=== PATIENT | male | born 1970 | race Caucasian/White ===

== ENCOUNTER 2019-06-06 07:29 | Emergency (ER) | payer OTHER, SELFPAY ==
[2019-06-06 07:36] VITALS: BP 181/96; PULSE 101; RESP 22; TEMP 36.9; O2SAT 99; BMI 27.1
--- NOTE | 2019-06-06 07:47 | ED_ITS ---
HPI - Abdominal Pain General Chief Complaint: Abdominal Pain Stated Complaint: ABDOMINAL PAIN Time Seen by Provider: 06/06/19 07:36 Source: patient Mode of arrival: Ambulatory Limitations: no limitations History of Present Illness HPI narrative: 49-year-old male here for evaluation of left sided abdominal pain. Patient states that the symptoms started last evening at approximately 1000 hours. Has had some nausea and vomiting which did not changes abdominal pain. He did think that he was constipated so he took a stool softener but has not had a bowel movement. Has been urinating with this does not seem to change his pain as well. No fevers. He did notice that heating pad and sitting in a warm bath helped his symptoms somewhat. No prior abdominal surgeries. Never had a kidney stone before. States that the pain did start in his left back and is now in his left abdomen. No fevers. Related Data Previous Rx's Medication Instructions Recorded hydrocodone-acetaminophen [[place]] 1 tab PO Q4H PRN #14 tab 06/06/19 ondansetron 4 mg PO Q6H PRN #14 tab 06/06/19 Allergies Allergy/AdvReac Type Severity Reaction Status Date / Time No Known Drug Allergies Allergy Verified 06/06/19 07:36 Review of Systems Constitutional Constitutional: Denies fever(s) Cardiovascular Cardiovascular: Denies chest pain and Denies dyspnea Respiratory Respiratory: Denies dyspnea Gastrointestinal Gastrointestinal: Reports abdominal pain, Reports constipation, Reports nausea and Reports vomiting Genitourinary Genitourinary: Denies dysuria Musculoskeletal Musculoskeletal: Denies abnormal gait, Denies myalgias and Denies arthralgias Integumentary/Breasts Skin/Breast: Denies lesions and Denies rash Neurologic Neurologic: Denies abnormal gait and Denies behavioral changes Psychiatric Psychiatric: Denies behavioral changes Hematologic/Lymphatic Hematologic/Lymphatic: Denies easy bleeding and Denies easy bruising Patient History Medical History Lower back pain (Acute) Social History Smoking Status: Never smoker alcohol intake frequency: 0-2 drinks per day Substance Use Type: does not use Exam Initial Vital Signs Initial Vital Signs: Vital Signs Temperature 98.4 F 06/06/19 07:36 Pulse Rate 101 H 06/06/19 07:36 Respiratory Rate 22 06/06/19 07:36 Blood Pressure 181/96 H 06/06/19 07:36 Pulse Oximetry 99 06/06/19 07:36 Const General: cooperative, No comfortable (On comfortable), well developed and well groomed Orientation: alert and awake HENMN Head: normal to inspection and normocephalic Resp Effort & Inspection: normal respiratory effort Auscultation: clear to auscultation bilaterally Cardio Rate: regular rate Rhythm: regular rhythm GI Inspection: non-distended Palpation: soft, No firm and No tender (No tenderness with palpation) Back/Spine/Pelvis Back: No CVA tenderness Skin Lesions: no lesions Rashes: no rashes Neuro General: alert and awake Cognition: normal cognition Speech: speech normal Extrem General: normal to inspection and capillary refill normal Psych Appearance: grossly normal and well kempt Course Orders Ordered: ED Orders 06/06/19 07:45 CT kidney ureter bladder (KUB) Stat Complete Blood Count AUTO DIFF Stat 06/06/19 08:20 Comprehensive Metabolic Panel Stat Lipase Stat 06/06/19 08:36 Urine Microscopic Stat 06/06/19 08:46 Urine Culture Stat Discontinued Medications Hydromorphone HCl (Dilaudid) 1 mg IV NOW ONE Stop: 06/06/19 07:42 Last Admin: 06/06/19 07:55 Dose: 1 mg Documented by: AMELIA Ketorolac Tromethamine (Toradol) 30 mg IV NOW ONE Stop: 06/06/19 07:42 Last Admin: 06/06/19 07:55 Dose: 30 mg Documented by: AMELIA Ondansetron HCl (Zofran) 4 mg IV NOW ONE Stop: 06/06/19 07:42 Last Admin: 06/06/19 07:55 Dose: 4 mg Documented by: AMELIA Vital Signs Vital signs: Vital Signs - 8 hr 06/06/19 07:36 Temperature 98.4 F Pulse Rate 101 H Respiratory Rate 22 Blood Pressure 181/96 H Pulse Oximetry 99 MDM - Abdominal Pain Lab Data Attestation: I reviewed the patient's lab results. Result diagrams: 06/06/19 07:45 06/06/19 08:20 Labs: Lab Results 06/06/19 06/06/19 06/06/19 Range/Units 07:45 08:20 08:36 WBC 11.9 H (4.5-11.0) X10^3/uL RBC 5.06 (4.5-5.9) X10^6/uL Hgb 16.0 (13.5-17.5) g/dL Hct 45.8 (41-53) % MCV 90.5 (80-100) fL MCH 31.5 (26-34) PG MCHC 34.9 (30-36) % RDW 13.6 (11.6-14.8) % Plt Count 306 (150-400) X10^3/uL Neut % (Auto) 80.3 H (50-75) % Lymph % (Auto) 10.0 L (25-40) % [place] % (Auto) 8.8 (3-14) % Eos % (Auto) 0.4 L (2-4) % Baso % (Auto) 0.5 (0-2) % Neut # (Auto) 9500 H (9111-2032) /uL Lymph # (Auto) 1200 (0924-9348) /uL [place] # (Auto) 1000 H (0-900) /uL Eos # (Auto) 0 (0-450) /uL Baso # (Auto) 100 (0-100) /uL Sodium 139 (137-145) mmol/L Potassium 5.0 (3.4-5.1) mmol/L Chloride 103 (98-107) mmol/L Carbon Dioxide 24 (22-32) mmol/L BUN 17 (9-20) mg/dL Creatinine 1.50 H (0.66-1.25) mg/dL Estimated GFR 49.3 L (>60) mL/min BUN/Creatinine Ratio 11.3 (6-22) Glucose 122 H (70-100) mg/dL Calcium 9.9 (8.4-10.2) mg/dL Total Bilirubin 1.1 (0.2-1.3) mg/dL AST 50 (17-59) IU/L ALT 79 H (21-72) IU/L Alkaline Phosphatase 55 (38-126) U/L Total Protein 8.7 H (6.3-8.2) g/dL Albumin 4.9 (3.5-5.0) g/dL Globulin 3.8 (1.7-4.1) g/dL Albumin/Globulin Ratio 1.3 (1.0-2.8) Lipase 110 (23-300) U/L Urine RBC None seen (0-5/HPF) Urine WBC None seen (0-5/HPF) Ur Squamous Epith Cells 0-1 /hpf (0-5/HPF) Amorphous Sediment 1+ Urine Bacteria None seen (None) Ur Culture Indicated? Cult not indicated Point of care testing: Urine Dip Bedside Urine Glucose Negative Bedside Urine Bilirubin - Negative Bedside Urine Ketone - Negative Urine Specific [place] 1.020 Bedside Urine Occult Blood +/- Bedside Urine pH 6.0 Bedside Urine Protein + 30 Bedside Urine Urobilinogen 1+ 2mg Bedside Urine Nitrite - Negative Bedside Urine Leukocytes - Negative Esterase Imaging Data CT scan - abdomen: Radiologist's impression: [address] [address] [address] Scan Report Signed Patient: Shikha Siu [facility]#: [id number] : 1970Acct:[id number] Age/Sex: 49 / MDate of Service: 06/06/19 Loc: ED Accession Number: [id number] Procedure: CT kidney ureter bladder (KUB) Ordering Provider: Nahun Sheriff D.O. PROCEDURE: CT KIDNEY URETER BLADDER (KUB) INDICATIONS: left-sided abdominal pain TECHNIQUE: Noncontrast 5 mm thick sections acquired from the diaphragms to the symphysis. 5 mm thick coronal and sagittal reformats were then performed. For radiation dose reduction, the following was used: automated exposure control, adjustment of mA and/or kV according to patient size. COMPARISON: None. FINDINGS: Image quality: Excellent. Lung bases: Lung bases are clear. Heart size is normal. Urinary system: Both kidneys are normal in size. There is moderate left-sided hydronephrosis and hydroureter with mild to moderate left perinephric and periureteral stranding. 2 mm calcification is seen in the region of left UVJ consistent with a left UVJ stone. 3 mm nonobstructing stone is seen in the pole of right kidney. No hydronephrosis. Right ureter is within normal limits. Bladder wall thickness is normal; no calcified bladder stones. Other solid organs: Liver is normal in size. Hepatic steatosis is seen. Gallbl adder is unremarkable. Pancreas is normal in contours. Spleen is normal in size. No adrenal nodules. Peritoneum and bowel: Unenhanced bowel loops demonstrate normal wall thickness and caliber. No free fluid or air. Nodes and vessels: No retroperitoneal or mesenteric adenopathy by size criteria. Aorta and inferior vena cava are normal in caliber. Abdominal wall: No ventral hernias. Pelvis: No free pelvic fluid. No inguinal hernias or adenopathy. Bones: No suspicious bony lesions. No vertebral body compression fractures. IMPRESSION: 1. 2 mm left UVJ stone with mild to moderate left-sided hydronephrosis and hydroureter as well as left perinephric/periureteral fat stranding. 2. Nonobstructing stone in the right kidney. No right-sided hydronephrosis. Nor mal appearing right ureter. Normal-appearing urinary bladder. 3. Hepatic steatosis. No bowel obstruction. Normal appendix. No free fluid or free air. Dictated by: Seng Rossi M.D. on 06/06/2019 at 8:36 Approved by: Seng Rossi M.D. on 06/06/2019 at 8:41 MDM Narrative Medical decision making narrative: Urinalysis no signs of infection. Patient's creatinine is slightly elevated today with a decreased GFR. I do suspect this is secondary to the stone however I do not have a baseline to compare this to. Patient is nontoxic. Has no other findings on the CT scan. I do suspect that his symptoms related to the stone. Will send home with symptom control. He was given return precautions and follow-up instructions. He expressed understanding and agreement with plan. Discharge Plan Departure Patient Disposition: Home Clinical Impression: Renal colic on left side Instructions: DI for Kidney Stones Activity Restrictions/Additional Instructions: I do recommend that you contact your primary provider for a follow-up. I do recommend that you have a follow-up lab studies to make sure that your kidney function returns to normal after you passed the stone. Take the medications as directed. Return to the emergency department for any fevers, pain that is not controlled with the medicines, or inability to urinate. Prescriptions: New ondansetron 4 mg tablet,disintegrating 4 mg PO Q6H PRN (Reason: nausea and vomiting) Qty: 14 RF: 0 hydrocodone-acetaminophen [[place]] 5-325 mg tablet 1 tab PO Q4H PRN (Reason: pain) Qty: 14 RF: 0
[2019-06-06] MEDS: HYDROMORPHONE 1 MG INJ IV (07:55)
[2019-06-06] MEDS: ONDANSETRON 4 MG/2 ML INJ IV (07:55)
[2019-06-06] MEDS: KETOROLAC 60 MG/2 ML VIAL 30 MG IV (07:55)
[2019-06-06 07:56] LABS: Add Manual Diff / Slide Review NO; Basophils Absolute Auto 100 /uL (0-100); Basophils Percent Auto 0.5 % (0-2); Eosinophils Absolute Auto 0 /uL (0-450); Eosinophils Percent Auto 0.4 % (2-4); Hematocrit 45.8 % (41-53); Lymphocytes Absolute Auto 1200 /uL (1100-4500); Mean Corpuscular HGB Conc 34.9 % (30-36); Mean Corpuscular Hemoglobin 31.5 PG (26-34); Mean Corpuscular Volume 90.5 fL (80-100); Monocytes Absolute Auto 1000 /uL (0-900); Monocytes Percent Auto 8.8 % (3-14); Neutrophils Absolute Auto 9500 /uL (1500-7000); Neutrophils Percent Auto 80.3 % (50-75); Platelet Count 306 X10^3/uL (150-400); Red Blood Cell Count 5.06 X10^6/uL (4.5-5.9); Red Cell Distribution Width 13.6 % (11.6-14.8); White Blood Cell Count 11.9 X10^3/uL (4.5-11.0)
[2019-06-06 08:47] LABS: Bacteria Urine None Seen; RBC Urine None Seen (0-5/HPF); WBC Urine None Seen (0-5/HPF)
[2019-06-06 08:51] LABS: Alanine Aminotransferase 79 IU/L (21-72); Albumin 4.9 g/dL (3.5-5.0); Albumin Globulin Ratio 1.3 (1.0-2.8); Alkaline Phosphatase 55 U/L (38-126); Aspartate Aminotransferase 50 IU/L (17-59); BUN Creatinine Ratio 11.3 (6-22); Bilirubin Total 1.1 mg/dL (0.2-1.3); Blood Urea Nitrogen 17 mg/dL (9-20); Calcium 9.9 mg/dL (8.4-10.2); Carbon Dioxide 24 mmol/L (22-32); Chloride 103 mmol/L (98-107); Estimated Glomerular Filt Rate 49.3 mL/min (>60); Globulin 3.8 g/dL (1.7-4.1); Glucose 122 mg/dL (70-100); Lipase 110 U/L (23-300); Sodium 139 mmol/L (137-145); Total Protein 8.7 g/dL (6.3-8.2)
[2019-06-06 08:52] LABS: HEMOLYSIS 75 (0-50)
[2019-06-06 08:57] LABS: Amorphous Sediment Urine 1+; Culture Indicated Urine Cult Not Indicated; Squamous Epithelial Cell Urine 0-1 /HPF (0-5/HPF)
[2019-06-06 09:20] VITALS: BP 136/85; PULSE 71; RESP 14; O2SAT 96
== END 2019-06-06 09:25 | disposition home or self-care (01) ==
PROVIDERS: Emergency Provider Emergency Medicine; Family Provider Physician Assistant
DX: N23 Unspecified renal colic (principal); R79.89 Other specified abnormal findings of blood chemistry; R11.2 Nausea with vomiting, unspecified; K59.00 Constipation, unspecified
CPT/HCPCS: 36415; 74176; 80053; 81003; 81015; 83690; 85025; 87086; 96374; 96375; 99283; 99284; J1170; J1885; J2405

== ENCOUNTER 2023-11-29 12:57 | Observation (INO) | payer OTHER, SELFPAY ==
[2023-11-29] VITALS (77 sets, daily range): BP systolic 127–228; BP diastolic 71–129; PULSE 69–136; RESP 16–38; TEMP 36.9–37.6; O2SAT 92–98; BMI 27.7
--- NOTE | 2023-11-29 13:14 | DI.RAD.S_ITS ---
PROCEDURE: XR CHEST 1V INDICATIONS: chest pain TECHNIQUE: One view of the chest was acquired. COMPARISON: None. FINDINGS: Surgical changes and devices: None. Lungs and pleura: Lungs are clear. No pleural effusions or pneumothorax. Mediastinum: Mediastinal contours appear normal. Heart size is normal. Bones and chest wall: No suspicious bony lesions. Overlying soft tissues appear unremarkable. IMPRESSION: No acute cardiopulmonary pathology. Dictated by: Seng Rossi M.D. on 11/29/2023 at 14:15 Approved by: Seng Rossi M.D. on 11/29/2023 at 14:15
[2023-11-29 13:36] LABS: Add Manual Diff / Slide Review NO; Basophils Absolute Auto 100 /uL (0-100); Basophils Percent Auto 2.2 % (0-2); Eosinophils Absolute Auto 100 /uL (0-450); Eosinophils Percent Auto 1.4 % (2-4); Hemoglobin 15.2 g/dL (13.5-17.5); Lymphocytes Absolute Auto 1500 /uL (1100-4500); Lymphocytes Percent Auto 26.7 % (25-40); Mean Corpuscular HGB Conc 33.8 % (30-36); Mean Corpuscular Hemoglobin 32.2 PG (26-34); Mean Corpuscular Volume 95.2 fL (80-100); Monocytes Absolute Auto 400 /uL (0-900); Monocytes Percent Auto 7.7 % (3-14); Neutrophils Absolute Auto 3400 /uL (1500-7000); Platelet Count 217 X10^3/uL (150-400); Red Blood Cell Count 4.73 X10^6/uL (4.5-5.9); Red Cell Distribution Width 13.5 % (11.6-14.8); White Blood Cell Count 5.6 X10^3/uL (4.5-11.0)
[2023-11-29 13:40] LABS: INR 1.1 (0.9-1.3); Prothrombin Time 12.4 SECONDS (9.4-12.5)
[2023-11-29 13:43] LABS: PTT Partial Thromboplastin Tim 38 SECONDS (25.1-36.5)
[2023-11-29 13:46] LABS: Alanine Aminotransferase 199 IU/L (<50); Albumin 4.8 g/dL (3.5-5.0); Albumin Globulin Ratio 1.3 (1.0-2.8); Alkaline Phosphatase 72 U/L (38-126); Aspartate Aminotransferase 119 IU/L (17-59); BUN Creatinine Ratio 16.7 (6-22); Bilirubin Total 0.9 mg/dL (0.2-1.3); Blood Urea Nitrogen 13 mg/dL (9-20); Calcium 9.9 mg/dL (8.4-10.2); Carbon Dioxide 30 mmol/L (22-32); Chloride 103 mmol/L (98-107); Creatine Kinase 320 U/L (55-170); Estimated Glomerular Filt Rate > 60 mL/min (>60); Globulin 3.6 g/dL (1.7-4.1); Glucose 172 mg/dL (70-100); HEMOLYSIS 38 (0-50); Lipase 213 U/L (23-300); Magnesium 1.8 mg/dL (1.6-2.3); Potassium 3.9 mmol/L (3.4-5.1); Sodium 138 mmol/L (137-145); Total Protein 8.4 g/dL (6.3-8.2)
[2023-11-29 13:57] LABS: Troponin I 0.016 ng/mL (0.01-0.034)
[2023-11-29] MEDS: ASPIRIN 81 MG CHEW TAB 324 MG PO (15:20)
--- NOTE | 2023-11-29 15:31 | ED.CHESTPAIN ---
HPI - Chest Pain General Chief Complaint: Chest Pain Stated Complaint: HBP, chest pain Time Seen by Provider: 11/29/23 15:19 Source: patient Mode of arrival: Ambulatory History of Present Illness HPI narrative: 53-year-old gentleman with sensation of general malaise today flushed skin, chest pain started at work described as a dull ache constant for the last 3 hours. Eventually left work because he was feeling poorly went home and checked his blood pressure which was significantly elevated. He states that he has a history of blood pressure as supposed to be taking lisinopril but stopped that a number of months ago. He stopped cigarette smoking about 6 months ago but is continuing to vape and trying to decrease that. To his knowledge he has never had a heart attack or a stroke. He has not currently on other medications. Continues to feel unwell with intermittent episodes of chest tightness and flushing. No recent fever, cough, chills, viral infections, nausea, vomiting, diarrhea Related Data Home Medications Medication Instructions Recorded Confirmed sildenafil 50 mg tablet 50 mg PO PRN PRN Erectile 11/29/23 11/29/23 Dysfunction Previous Rx's Medication Instructions Recorded amlodipine 5 mg tablet (Norvasc) 5 mg PO DAILY #30 tabs 11/30/23 lisinopril 20 mg tablet 20 mg PO DAILY #30 tabs 11/30/23 rosuvastatin 10 mg tablet (Crestor) 10 mg PO DAILY #30 tabs 11/30/23 Allergies Allergy/AdvReac Type Severity Reaction Status Date / Time No Known Drug Allergies Allergy Verified 06/06/19 07:36 Review of Systems Review of Systems Narrative: Pertinent positive and negative findings as per HPI Patient History Medical History Hypertension Lower back pain Social History household members: spouse Smoking Status: Never smoker Smoking Status: Never smoker alcohol intake frequency: 0-2 drinks per day Substance Use Type: does not use Exam Initial Vital Signs Initial Vital Signs: Vital Signs Temperature 98.4 F 11/29/23 13:07 Pulse Rate 90 11/29/23 13:07 Respiratory Rate 16 11/29/23 13:07 Blood Pressure 204/112 H 11/29/23 13:07 Pulse Oximetry 97 11/29/23 13:07 Oxygen Delivery Method Room Air 04/22/24 13:07 General: Healthy appearing, in no acute distress. Able to give a complete and coherent history. Well-nourished well-developed HEENT: Moist mucous membranes, normal sclera with reactive pupils, Neck: No JVD, supple Respiratory: Lungs are clear to auscultation, no wheezing no rales no rhonchi. Full and symmetrical air movement Cardiac: Regular rate and rhythm no murmurs no bruits Abdomen: Soft, nontender, good bowel tones, no flank pain Skin: Flushed but not diaphoretic Neurologic: Grossly neurologically intact with no obvious asymmetries or abnormalities Extremities: No trauma, well perfused Psych: Cooperative, appropriate insight and affect Course Orders Ordered: Acetaminophen (Acetaminophen 325 Mg Tablet) 650 mg PO Q6H PRN PRN Reason: Fever/Mild Pain (1-3) Amlodipine Besylate (Amlodipine 5 Mg Tablet) 5 mg PO DAILY [facility] Last Admin: 11/30/23 08:34 Dose: Not Given Documented By: Admin: 11/30/23 08:01 Dose: 5 mg Documented By: QUETA Chlordiazepoxide HCl (Chlordiazepoxide 10 Mg Capsule) 10 mg PO TID [facility] Last Admin: 11/30/23 08:03 Dose: 10 mg Documented By: Admin: 11/29/23 20:38 Dose: 10 mg Documented By: Admin: 11/29/23 18:38 Dose: 10 mg Documented By: NADIR Clonidine HCl (Clonidine 0.1 Mg Tablet) 0.1 mg PO Q4HR PRN PRN Reason: Alcohol Withdrawal Folic Acid (Folic Acid 1 Mg Tablet) 1 mg PO DAILY [facility] Last Admin: 11/30/23 08:07 Dose: 1 mg Documented By: QUETA Heparin Sodium (Porcine) (Heparin 5,000 Unit/Ml Vial) 5,000 unit SUBCUT BID [facility] Last Admin: 11/30/23 08:03 Dose: 5,000 unit Documented By: Admin: 11/29/23 20:38 Dose: 5,000 unit Documented By: KARTIK Nicardipine HCl 25 mg/ Sodium (Chloride) 250 mls @ 50 mls/hr IV TITRATE NICHOLE; Protocol Last Titration: 11/29/23 20:40 Dose: 0 mg/hr, 0 mls/hr Documented By: Admin: 11/29/23 16:38 Dose: 5 mg/hr, 50 mls/hr Documented By: SLY Lisinopril (Lisinopril 20 Mg Tablet) 20 mg PO BID [facility] Last Admin: 11/30/23 08:02 Dose: 20 mg Documented By: Admin: 11/29/23 20:39 Dose: Not Given Documented By: Admin: 11/29/23 18:38 Dose: 20 mg Documented By: NADIR Lorazepam (Lorazepam 1 Mg Tablet) 0 mg PO CIWAPRN PRN; Protocol PRN Reason: Alcohol Withdrawal Multivitamins (Multivitamin 1 Tablet) 1 tab PO DAILY [facility] Last Admin: 11/30/23 08:07 Dose: 1 tab Documented By: QUETA Naloxone HCl (Naloxone 0.4 Mg/Ml Vial) 0.2 mg IV Q2MIN PRN PRN Reason: Opiate Reversal Nicotine (Nicotine 14 Patch) 14 mg TOP DAILY [facility] Last Admin: 11/30/23 08:09 Dose: Not Given Documented By: QUETA Sodium Chloride (Sodium Chloride 0.9% Flush) 10 ml IV PRN PRN PRN Reason: Flush Sodium Chloride (Sodium Chloride 0.9% Flush) 10 ml IV BID [facility] Last Admin: 11/30/23 08:17 Dose: 10 ml Documented By: Admin: 11/29/23 20:41 Dose: 10 ml Documented By: KARTIK Thiamine HCl (Thiamine 100 Mg Tablet) 100 mg PO DAILY [facility] Stop: 12/03/23 09:01 Last Admin: 11/30/23 08:07 Dose: 100 mg Documented By: QUETA Discontinued Medications Aspirin (Aspirin 81 Mg Chew Tab) 324 mg PO NOW ONE Stop: 11/29/23 13:15 Last Admin: 11/29/23 15:20 Dose: 324 mg Documented By: NEETU Vital Signs Vital signs: Vital Signs - 8 hr 11/29/23 13:07 11/29/23 14:49 11/29/23 14:49 Temperature 98.4 F Pulse Rate 90 79 Respiratory Rate 16 Blood Pressure 204/112 H 211/112 H Pulse Oximetry 97 97 Oxygen Delivery Method Room Air 11/29/23 15:00 11/29/23 15:00 11/29/23 15:30 Temperature Pulse Rate 76 Respiratory Rate 20 Blood Pressure 191/97 H 175/102 H Pulse Oximetry 95 Oxygen Delivery Method 11/29/23 15:30 Temperature Pulse Rate 71 Respiratory Rate 19 Blood Pressure Pulse Oximetry 96 Oxygen Delivery Method MDM - Chest Pain Lab Data 11/30/23 04:20 11/30/23 04:20 Labs: Lab Results 11/29/23 11/29/23 Range/Units 13:25 16:17 WBC 5.6 (4.5-11.0) X10^3/uL RBC 4.73 (4.5-5.9) X10^6/uL Hgb 15.2 (13.5-17.5) g/dL Hct 45.0 (41-53) % MCV 95.2 (80-100) fL MCH 32.2 (26-34) PG MCHC 33.8 (30-36) % RDW 13.5 (11.6-14.8) % Plt Count 217 (150-400) X10^3/uL Neut % (Auto) 62.0 (50-75) % Lymph % (Auto) 26.7 (25-40) % [place] % (Auto) 7.7 (3-14) % Eos % (Auto) 1.4 L (2-4) % Baso % (Auto) 2.2 H (0-2) % Neut # (Auto) 3400 (9836-5468) /uL Lymph # (Auto) 1500 (0377-8636) /uL [place] # (Auto) 400 (0-900) /uL Eos # (Auto) 100 (0-450) /uL Baso # (Auto) 100 (0-100) /uL PT 12.4 (9.4-12.5) SECONDS INR 1.1 (0.9-1.3) APTT 38 H (25.1-36.5) SECONDS Sodium 138 (137-145) mmol/L Potassium 3.9 (3.4-5.1) mmol/L Chloride 103 (98-107) mmol/L Carbon Dioxide 30 (22-32) mmol/L BUN 13 (9-20) mg/dL Creatinine 0.78 (0.66-1.25) mg/dL Estimated GFR > 60 (>60) mL/min BUN/Creatinine Ratio 16.7 (6-22) Glucose 172 H (70-100) mg/dL Calcium 9.9 (8.4-10.2) mg/dL Magnesium 1.8 (1.6-2.3) mg/dL Total Bilirubin 0.9 (0.2-1.3) mg/dL AST 119 H (17-59) IU/L ALT 199 H (<50) IU/L Alkaline Phosphatase 72 (38-126) U/L Total Creatine Kinase 320 H (55-170) U/L Troponin I 0.016 0.019 (0.01-0.034) ng/mL Total Protein 8.4 H (6.3-8.2) g/dL Albumin 4.8 (3.5-5.0) g/dL Globulin 3.6 (1.7-4.1) g/dL Albumin/Globulin Ratio 1.3 (1.0-2.8) Lipase 213 (23-300) U/L MDM Narrative Medical decision making narrative: CC: General malaise, chest tightness, flushing Complicating co-morbidities: Stopped hypertensive medications a couple of months ago for unclear reasons Data collected from: patient Social determinants of health that may influence the patients condition: Followed at the [employer] base Differential considered: Acute coronary syndrome, hypertensive crisis, viral syndrome, simple hypertension untreated Exam documented above, pertinent findings include: Patient is flushed and during our exam and discussion blood pressure again climbed up to 130/118 with more flushing and more chest tightness. Remainder of exam is benign Lab Test results independently reviewed as above. Pertinent findings: CBC is unremarkable Metabolic panel shows an elevated glucose at 172. AST, ALT are slightly elevated. Alk-phos and bilirubin are unremarkable. Creatinine kinase is elevated at 320 Initial troponin is unremarkable Independently reviewed EKG: Sinus rhythm at a rate of 92, leftward axis, LVH, no acute ischemic changes Imaging studies independently reviewed: Chest x-ray is unremarkable Consultations: Dr Anguiano, hospitalist Treatments: Patient was started on nicardipine Discussion: 53-year-old gentleman with generally, chest tightness significantly elevated blood pressure today, with rest will come down as low as 125/110 however with any type of activity including talking goes back up into the 120-130 over 120 range. We will start him on nicardipine with a goal of 160-180 systolic and admit him to the hospitalist service for further evaluation. Second troponin is currently pending, chest x-ray does not show significant cardiomegaly or signs of congestive heart failure. No concern for stroke or acute brain ischemia at this time Critical Care Time Critical Care Time Critical Care Time: Yes Total Critical Care Time: 33 Attestation: Critical care time is separate from other billable procedures. There is a high probability of a significant, sudden or life-threatening deterioration that requires my full and direct attention, intervention and personal management. This critical care time includes consultation with family and other consulting doctors, review of records, and interpretation of data from labs, EKGs and imaging as well as managements of hypertensive crisis with parenteral hypertensive medications used for acute management Discharge Plan Departure Patient Disposition: Admitted as Observation Clinical Impression: Hypertensive crisis Chest pain Qualifiers: Chest pain type: unspecified Qualified Code(s): R07.9 - Chest pain, unspecified Admit Date/Time: 11/29/23 16:21 Admit Provider: Trung Anguiano
[2023-11-29] MEDS: NICARDIPINE 25 MG in SODIUM CHLORIDE 0.9% 240 ML 50 MG IV (16:38)
[2023-11-29 16:50] LABS: Troponin I 0.019 ng/mL (0.01-0.034)
--- NOTE | 2023-11-29 16:51 | PM.HP.1 ---
History of Present Illness History of Present Illness Date Patient Seen: 11/29/23 Time Patient Seen: 16:51 Chief complaint: HBP, chest pain Narrative: The patient presents today with a feeling of intermittent waves of feeling strange. He had palpitations, chest pressure, and intermittent flushing. He denies headache, or focal neurologic symptoms. He did stop his blood pressure and statin medications approximately 2 months ago for unclear reasons. He has not been monitoring his blood pressure but notes that he has had waxing and waning feelings of being flushed for several months. Today he left work and alerted his who brought him to the emergency department. Here he was found to be extremely hypertensive and started on a nicardipine drip. The patient notes he also drinks 4 whiskeys and evening and does get some degree of shakes if he does not have his daily alcohol. He denies history of severe withdrawal or withdrawal seizures. He did stop smoking several months ago but now is using a vape every day. He denies exertional chest pain. He did have some relatively good response to nicardipine in the emergency department and does feel somewhat better symptomatically with less flushing and less palpitations. He also notes an exertional stress test last summer ([place]) which was said to be normal, however he was found to be hypertensive during the study. [facility] Medical History Hypertension Lower back pain Social History Smoking Status: Never smoker Meds Home Medications and Allergies Home Medications Medication Instructions Recorded Confirmed Type hydrocodone 5 mg-acetaminophen 325 1 tab PO Q4H PRN pain #14 tabs 06/06/19 Rx mg tablet ([place]) ondansetron 4 mg disintegrating 4 mg PO Q6H PRN nausea and 06/06/19 Rx tablet vomiting #14 tabs Allergies Allergy/AdvReac Type Severity Reaction Status Date / Time No Known Drug Allergies Allergy Verified 06/06/19 07:36 Review of Systems Review of Systems Narrative: All else reviewed and otherwise unremarkable except as noted in the H&P. Exam Vital Signs (past 8 hours): - 11/29/23 13:07 11/29/23 14:49 11/29/23 14:49 Temperature 98.4 F Pulse Rate 90 79 Respiratory Rate 16 Blood Pressure 204/112 H 211/112 H Pulse Oximetry 97 97 Oxygen Delivery Method Room Air 11/29/23 15:00 11/29/23 15:00 11/29/23 15:30 Temperature Pulse Rate 76 Respiratory Rate 20 Blood Pressure 191/97 H 175/102 H Pulse Oximetry 95 Oxygen Delivery Method 11/29/23 15:30 11/29/23 15:45 11/29/23 16:00 Temperature Pulse Rate 71 77 Respiratory Rate 19 22 Blood Pressure 228/129 H Pulse Oximetry 96 96 Oxygen Delivery Method 11/29/23 16:00 11/29/23 16:14 11/29/23 16:14 Temperature Pulse Rate 83 73 Respiratory Rate 22 24 Blood Pressure 222/108 H Pulse Oximetry 96 95 Oxygen Delivery Method Room Air 11/29/23 16:15 11/29/23 16:34 11/29/23 16:35 Temperature Pulse Rate 74 69 Respiratory Rate 21 Blood Pressure 208/121 H Pulse Oximetry 97 98 Oxygen Delivery Method 11/29/23 16:35 11/29/23 16:37 11/29/23 16:37 Temperature Pulse Rate 71 72 Respiratory Rate 24 23 Blood Pressure 209/103 H Pulse Oximetry 98 97 Oxygen Delivery Method 11/29/23 16:38 11/29/23 16:38 11/29/23 16:39 Temperature Pulse Rate 73 83 Respiratory Rate 22 21 Blood Pressure 201/97 H Pulse Oximetry 98 97 Oxygen Delivery Method 11/29/23 16:40 Temperature Pulse Rate Respiratory Rate Blood Pressure 205/101 H Pulse Oximetry Oxygen Delivery Method Room Air Oxygen Delivery Method Room Air Narrative Exam Narrative: NAD, alert and oriented, fluent speech, mildly anxious. He does have a flushed face. Normocephalic skull, EOMI, anicteric sclera, symmetric pupils. Oropharynx unremarkable, no droop. Neck supple, midline trachea, no adenopathy. Lungs clear, normal rate and effort. Heart regular, no murmur gallop or rub. Abdomen is soft, non distended and non tender. Extremities are free of edema. Skin is free of rash or lesions. Joints are not swollen or deformed. Judgment appears to be normal. Objective Imaging Chest x-ray: Radiologist's impression: No acute cardiopulmonary pathology. Labs 11/29/23 13:25 11/29/23 13:25 Labs: Laboratory Results - last 24 hr 11/29/23 11/29/23 13:25 16:17 WBC 5.6 RBC 4.73 Hgb 15.2 Hct 45.0 MCV 95.2 MCH 32.2 MCHC 33.8 RDW 13.5 Plt Count 217 Neut % (Auto) 62.0 Lymph % (Auto) 26.7 Day % (Auto) 7.7 Eos % (Auto) 1.4 L Baso % (Auto) 2.2 H Neut # (Auto) 3400 Lymph # (Auto) 1500 Day # (Auto) 400 Eos # (Auto) 100 Baso # (Auto) 100 PT 12.4 INR 1.1 APTT 38 H Sodium 138 Potassium 3.9 Chloride 103 Carbon Dioxide 30 BUN 13 Creatinine 0.78 Estimated GFR > 60 BUN/Creatinine Ratio 16.7 Glucose 172 H Calcium 9.9 Magnesium 1.8 Total Bilirubin 0.9 AST 119 H ALT 199 H Alkaline Phosphatase 72 Total Creatine Kinase 320 H Troponin I 0.016 0.019 Total Protein 8.4 H Albumin 4.8 Globulin 3.6 Albumin/Globulin Ratio 1.3 Lipase 213 Assessment & Plan Assessment & Plan narrative: 1. Hypertensive urgency, present on admission and active. 2. Hypertension and recent medication non-compliance. Present on admission. 3. Tobacco dependence, present on admission and active. 4. Alcohol use, present on admission and active. Plan: -nicardipine drip, start lisinopril 20 b.i.d. and wean drip as able. We will add additional agents as needed. -CIWA protocol, at risk for alcohol withdrawal. We will also start Librium 10 t.i.d.. -Nicoderm patch. -resume his chronic statin which he also stopped 2 months ago. Full code. Admitted to inpatient status with an expectation of 2 midnights of hospital care. Time Spent With Patient Time with patient: 30 to 49 minutes with 50% spent counseling/coordinating care Quality MIPS - Admit I confirm the patient?s Advance Care Plan is present, Code status is documented, Surrogate decision maker is in patient?s record [If Yes, STOP here]: Yes MIPS - Meds 'Current medications' to include all prescriptions, [id number] products, herbals, cannabis/cannabidiol products, and vitamin/mineral/dietary (nutritional) supplements. I have utilized all available resources to obtain, update, or review the patient?s current medications. [If Yes, STOP here]: Yes
[2023-11-29] MEDS: lisinopriL 20 MG TABLET PO (18:38)
[2023-11-29] MEDS: chlordiazePOXIDE 10 MG CAPSULE PO ×2 (18:38→20:38)
[2023-11-29 20:00] LABS: MRSA (Nasal) PCR NOT DETECTED (Not Detect)
[2023-11-29] MEDS: HEPARIN 5,000 UNIT/ML VIAL 5000 UNIT SUBCUT (20:38)
[2023-11-29] MEDS: SODIUM CHLORIDE 0.9% FLUSH 10 ML IV (20:41)
[2023-11-30] VITALS (15 sets, daily range): BP systolic 131–167; BP diastolic 69–96; PULSE 54–80; RESP 14–24; TEMP 36.2–37.1; O2SAT 92–97
[2023-11-30 04:42] LABS: Add Manual Diff / Slide Review NO; Basophils Absolute Auto 100 /uL (0-100); Basophils Percent Auto 1.3 % (0-2); Eosinophils Absolute Auto 200 /uL (0-450); Eosinophils Percent Auto 3.4 % (2-4); Hematocrit 44.2 % (41-53); Hemoglobin 15.1 g/dL (13.5-17.5); Lymphocytes Absolute Auto 1700 /uL (1100-4500); Lymphocytes Percent Auto 31.5 % (25-40); Mean Corpuscular HGB Conc 34.1 % (30-36); Mean Corpuscular Hemoglobin 32.3 PG (26-34); Mean Corpuscular Volume 94.7 fL (80-100); Monocytes Absolute Auto 600 /uL (0-900); Monocytes Percent Auto 10.9 % (3-14); Neutrophils Absolute Auto 2900 /uL (1500-7000); Neutrophils Percent Auto 52.9 % (50-75); Platelet Count 211 X10^3/uL (150-400); Red Blood Cell Count 4.67 X10^6/uL (4.5-5.9); Red Cell Distribution Width 13.4 % (11.6-14.8); White Blood Cell Count 5.4 X10^3/uL (4.5-11.0)
[2023-11-30 04:55] LABS: BUN Creatinine Ratio 15.1 (6-22); Blood Urea Nitrogen 11 mg/dL (9-20); Calcium 9.3 mg/dL (8.4-10.2); Carbon Dioxide 26 mmol/L (22-32); Chloride 103 mmol/L (98-107); Estimated Glomerular Filt Rate > 60 mL/min (>60); Glucose 149 mg/dL (70-100); HEMOLYSIS < 15 (0-50); Potassium 3.9 mmol/L (3.4-5.1); Sodium 136 mmol/L (137-145)
[2023-11-30] MEDS: AMLODIPINE 5 MG TABLET PO (08:01)
[2023-11-30] MEDS: lisinopriL 20 MG TABLET PO (08:02)
[2023-11-30] MEDS: chlordiazePOXIDE 10 MG CAPSULE PO (08:03)
[2023-11-30] MEDS: HEPARIN 5,000 UNIT/ML VIAL 5000 UNIT SUBCUT (08:03)
[2023-11-30] MEDS: FOLIC ACID 1 MG TABLET PO (08:07)
[2023-11-30] MEDS: MULTIVITAMIN 1 TABLET 1 TAB PO (08:07)
[2023-11-30] MEDS: THIAMINE 100 MG TABLET PO (08:07)
[2023-11-30] MEDS: SODIUM CHLORIDE 0.9% FLUSH 10 ML IV (08:17)
--- NOTE | 2023-11-30 08:50 | PM.DS.1 ---
History of Present Illness History of Present Illness Chief complaint: HBP, chest pain Narrative: The patient presents today with a feeling of intermittent waves of feeling strange. He had palpitations, chest pressure, and intermittent flushing. He denies headache, or focal neurologic symptoms. He did stop his blood pressure and statin medications approximately 2 months ago for unclear reasons. He has not been monitoring his blood pressure but notes that he has had waxing and waning feelings of being flushed for several months. Today he left work and alerted his who brought him to the emergency department. Here he was found to be extremely hypertensive and started on a nicardipine drip. The patient notes he also drinks 4 whiskeys and evening and does get some degree of shakes if he does not have his daily alcohol. He denies history of severe withdrawal or withdrawal seizures. He did stop smoking several months ago but now is using a vape every day. He denies exertional chest pain. He did have some relatively good response to nicardipine in the emergency department and does feel somewhat better symptomatically with less flushing and less palpitations. He also notes an exertional stress test last summer ([place]) which was said to be normal, however he was found to be hypertensive during the study. Discharge Providers Provider Date of admission: 11/29/23 16:21 Discharge Date: 11/30/23 Primary care physician: FABI Kincaid Consults: 11/29/23 18:26 Consult to Dietitian, Adult Routine Comment: Reason For Exam: alcohol abuse Discharge provider: Trung Anguiano MD Summary Hospital Course Discharge Diagnosis: 1. Hypertensive urgency, present on admission and active. 2. Hypertension and recent medication non-compliance. Present on admission. 3. Tobacco dependence, present on admission and active. 4. Alcohol use, present on admission and active. 5. Hyperglycemia, present on admission and active. Hospital Course: The patient was admitted for hypertensive urgency and required a nicardipine drip overnight. He would stopped his medications several months prior. He was started back on lisinopril as well as having amlodipine introduced. The patient had improvement of blood pressure overnight and was able to wean off from his drip. He also is currently vaping and was given a nicotine patch. He has a history of significant alcohol intake with 4-5 whiskeys a day. He was given Librium overnight and we will work on discussing this was with his doctor as well as tapering the amount of alcohol he is using over the next several weeks. In addition he has hyperglycemia, which she is heard about. He we will request a follow up A1c when being seen by his primary care doctor this week. The patient had an unexpectedly rapid recovery with his severe hypertension and high risk for alcohol withdrawal. He was able to be discharged after 1 midnight of care. Status at Discharge Cognitive/behavioral status at discharge: oriented Functional status at discharge: independent ambulation Overall status at discharge: patient is back to baseline Time Spent with Patient Time spent: Greater than 30 minutes Exam Vital Signs (past 8 hours): - 11/30/23 01:00 11/30/23 01:00 11/30/23 02:00 Temperature Pulse Rate 69 63 Respiratory Rate 16 16 Blood Pressure 134/84 Pulse Oximetry 92 96 Oxygen Delivery Method Oxygen Flow Rate 0 11/30/23 02:00 11/30/23 03:00 11/30/23 03:00 Temperature Pulse Rate 66 Respiratory Rate 16 Blood Pressure 141/88 H 142/89 H Pulse Oximetry 95 Oxygen Delivery Method Oxygen Flow Rate 0 0 11/30/23 03:36 11/30/23 04:00 11/30/23 04:00 Temperature 97.2 F L Pulse Rate 62 Respiratory Rate 19 Blood Pressure 135/69 Pulse Oximetry 95 Oxygen Delivery Method Room Air Oxygen Flow Rate 0 11/30/23 05:00 11/30/23 05:00 11/30/23 05:32 Temperature Pulse Rate 61 68 Respiratory Rate 14 24 Blood Pressure 155/96 H Pulse Oximetry 92 97 Oxygen Delivery Method Oxygen Flow Rate 0 11/30/23 05:32 11/30/23 06:08 11/30/23 06:08 Temperature Pulse Rate 63 Respiratory Rate Blood Pressure 158/92 H 167/85 H Pulse Oximetry 97 Oxygen Delivery Method Oxygen Flow Rate 11/30/23 06:09 11/30/23 06:09 11/30/23 06:31 Temperature Pulse Rate 64 Respiratory Rate 19 Blood Pressure 160/90 H 147/89 H Pulse Oximetry 97 Oxygen Delivery Method Oxygen Flow Rate 0 11/30/23 06:31 11/30/23 07:00 11/30/23 07:00 Temperature Pulse Rate 54 L 70 Respiratory Rate Blood Pressure 154/92 H Pulse Oximetry 92 97 Oxygen Delivery Method Oxygen Flow Rate 11/30/23 07:00 11/30/23 07:35 11/30/23 07:35 Temperature 98.0 F Pulse Rate 80 Respiratory Rate Blood Pressure 132/88 Pulse Oximetry 95 Oxygen Delivery Method Oxygen Flow Rate 11/30/23 08:00 11/30/23 08:00 11/30/23 08:00 Temperature Pulse Rate 70 Respiratory Rate Blood Pressure 139/86 Pulse Oximetry 94 Oxygen Delivery Method Room Air Oxygen Flow Rate 11/30/23 08:02 11/30/23 08:40 Temperature Pulse Rate 64 73 Respiratory Rate 16 Blood Pressure 139/82 139/86 Pulse Oximetry 96 Oxygen Delivery Method Oxygen Flow Rate Oxygen Delivery Method Room Air Oxygen Flow Rate 0 Narrative Exam Narrative: NAD, alert and oriented. Fluent speech. Lungs are clear, normal rate and effort. Heart is regular, no murmur gallop or rub. Abdomen is soft, non distended. Extremities are free of edema. Objective Imaging Chest x-ray: Radiologist's impression: No acute cardiopulmonary pathology. Labs 11/30/23 04:20 11/30/23 04:20 Labs: Laboratory Results - last 24 hr 11/29/23 11/29/23 11/29/23 13:25 16:17 18:40 WBC 5.6 RBC 4.73 Hgb 15.2 Hct 45.0 MCV 95.2 MCH 32.2 MCHC 33.8 RDW 13.5 Plt Count 217 Neut % (Auto) 62.0 Lymph % (Auto) 26.7 [place] % (Auto) 7.7 Eos % (Auto) 1.4 L Baso % (Auto) 2.2 H Neut # (Auto) 3400 Lymph # (Auto) 1500 [place] # (Auto) 400 Eos # (Auto) 100 Baso # (Auto) 100 PT 12.4 INR 1.1 APTT 38 H Sodium 138 Potassium 3.9 Chloride 103 Carbon Dioxide 30 BUN 13 Creatinine 0.78 Estimated GFR > 60 BUN/Creatinine Ratio 16.7 Glucose 172 H Calcium 9.9 Magnesium 1.8 Total Bilirubin 0.9 AST 119 H ALT 199 H Alkaline Phosphatase 72 Total Creatine Kinase 320 H Troponin I 0.016 0.019 Total Protein 8.4 H Albumin 4.8 Globulin 3.6 Albumin/Globulin Ratio 1.3 Lipase 213 Nasal Screen MRSA (PCR) Not detected 11/30/23 04:20 WBC 5.4 RBC 4.67 Hgb 15.1 Hct 44.2 MCV 94.7 MCH 32.3 MCHC 34.1 RDW 13.4 Plt Count 211 Neut % (Auto) 52.9 Lymph % (Auto) 31.5 [place] % (Auto) 10.9 Eos % (Auto) 3.4 Baso % (Auto) 1.3 Neut # (Auto) 2900 Lymph # (Auto) 1700 [place] # (Auto) 600 Eos # (Auto) 200 Baso # (Auto) 100 PT INR APTT Sodium 136 L Potassium 3.9 Chloride 103 Carbon Dioxide 26 BUN 11 Creatinine 0.73 Estimated GFR > 60 BUN/Creatinine Ratio 15.1 Glucose 149 H Calcium 9.3 Magnesium Total Bilirubin AST ALT Alkaline Phosphatase Total Creatine Kinase Troponin I Total Protein Albumin Globulin Albumin/Globulin Ratio Lipase Nasal Screen MRSA (PCR) [facility] Medical History Hypertension Lower back pain Social History household members: spouse Smoking Status: Never smoker Discharge Assessment & Plan Assessment and Plan Assessment: 1. Hypertensive urgency, present on admission and active. 2. Hypertension and recent medication non-compliance. Present on admission. 3. Tobacco dependence, present on admission and active. 4. Alcohol use, present on admission and active. 5. Hyperglycemia, present on admission and active. Plan of Treatment: Follow up with primary care within the next 6 days. He was started on amlodipine 5 daily, we will continue lisinopril as a restarted 20 daily and Crestor 10 daily. All were sent to his pharmacy. The patient will work on reducing his alcohol consumption with a slow taper over the next 4 weeks. He will discuss options to deal with his current level consumption with his primary care doctor. In addition he was advised to consider looking at cessation of vaping and have his A1c rechecked when he follows up. Discharge Plan Discharge Plan Patient Disposition: Home Provider Discharge Comment: He is stable for discharge on antihypertensive medications with close primary care follow up. Reduce alcohol and follow up with primary care within 6 days with an A1c to reassess blood glucose. Discharge orders & Medications Prescriptions: New lisinopril 20 mg Tablet 20 mg PO DAILY Qty: 30 2RF amlodipine [Norvasc] 5 mg Tablet 5 mg PO DAILY Qty: 30 2RF rosuvastatin [Crestor] 10 mg tablet 10 mg PO DAILY Qty: 30 2RF Continued sildenafil 50 mg tablet 50 mg PO PRN PRN (Reason: Erectile Dysfunction) Discontinued ondansetron 4 mg tablet,disintegrating 4 mg PO Q6H PRN (Reason: nausea and vomiting) Qty: 14 0RF Medication counseling provided by Pharmacist: No Follow up/Referrals: Arely Sterling ARNP [Primary Care Provider] - Discharge Health Status Multidrug resistant organism: No MDRO Diet/Activity/Treatments Diet: Diet as Tolerated Diet comment: Low carb, low salt Activity: as tolerated Visit Report/Discharge Packet Instructions: DI for Malignant Hypertension Stand Alone Forms: Patient Portal/API Discharge Data Primary Care Provider: Arely Sterling Attending Provider: Trung Anguiano Admit Date/Time: 11/29/23 16:21
--- NOTE | 2023-11-30 11:51 | CM.DANOTE ---
DCP Brief Assessment Note: Pt is a 53yo male, presented to the ED on 11.28 due to high blood pressure and chest pain. DCP reviewed chart and team rounds for status updates. Pt was medically cleared for discharge and had no identified discharge needs per nursing staff. PRP was not able to meet with pt at bedside before discharge. DANISHA Marques
== END 2023-11-30 09:10 | disposition home or self-care (01) ==
LOC: ED 16:12 → AC 16:22 → ICU 18:36
PROVIDERS: Admitting Provider Hospitalist; Emergency Provider Emergency Medicine; PCP Nurse Practitioner Family; Visit Provider Hospitalist
DX: R07.9 Chest pain, unspecified (principal); I16.0 Hypertensive urgency; F17.290 Nicotine dependence, other tobacco product, uncomplicated; I10 Essential (primary) hypertension
CPT/HCPCS: 36415; 71045; 80048; 80053; 82550; 83690; 83735; 84484; 85025; 85610; 85730; 87797; 93005; 96365; 96366; 96372; 99284; 99291; G0378; J1644

== ENCOUNTER 2023-12-28 11:09 | Emergency (ER) | payer OTHER, SELFPAY ==
[2023-11-29 18:36] VITALS: BMI 27.7
[2023-12-28] VITALS (12 sets, daily range): BP systolic 137–184; BP diastolic 82–105; PULSE 68–85; RESP 12–22; TEMP 37.1; O2SAT 95–98; BMI 27.1
--- NOTE | 2023-12-28 11:20 | DI.RAD.S_ITS ---
PROCEDURE: XR CHEST 1V INDICATIONS: chest pain TECHNIQUE: One view of the chest was acquired. COMPARISON: [facility], CR, XR CHEST 1V, 11/29/2023, 13:27. FINDINGS: Surgical changes and devices: None. Lungs and pleura: Lungs are clear. No pleural effusions or pneumothorax. Mediastinum: Mediastinal contours appear normal. Heart size is normal. Bones and chest wall: No suspicious bony lesions. Overlying soft tissues appear unremarkable. IMPRESSION: No acute cardiopulmonary abnormality is seen. Dictated by: Aristeo Amaya M.D. on 12/28/2023 at 12:11 Approved by: Aristeo Amaya M.D. on 12/28/2023 at 12:11
[2023-12-28 11:48] LABS: Add Manual Diff / Slide Review NO; Basophils Absolute Auto 100 /uL (0-100); Basophils Percent Auto 1.4 % (0-2); Eosinophils Absolute Auto 100 /uL (0-450); Eosinophils Percent Auto 1.5 % (2-4); Hematocrit 41.5 % (41-53); Hemoglobin 14.4 g/dL (13.5-17.5); Lymphocytes Absolute Auto 1700 /uL (1100-4500); Lymphocytes Percent Auto 26.8 % (25-40); Mean Corpuscular HGB Conc 34.7 % (30-36); Mean Corpuscular Hemoglobin 32.6 PG (26-34); Mean Corpuscular Volume 93.8 fL (80-100); Monocytes Absolute Auto 600 /uL (0-900); Monocytes Percent Auto 9.2 % (3-14); Neutrophils Absolute Auto 4000 /uL (1500-7000); Neutrophils Percent Auto 61.1 % (50-75); Platelet Count 233 X10^3/uL (150-400); Red Blood Cell Count 4.43 X10^6/uL (4.5-5.9); Red Cell Distribution Width 12.9 % (11.6-14.8); White Blood Cell Count 6.5 X10^3/uL (4.5-11.0)
[2023-12-28] MEDS: ASPIRIN 81 MG CHEW TAB 324 MG PO (11:54)
[2023-12-28 11:56] LABS: INR 1.1 (0.9-1.3); Prothrombin Time 12.6 SECONDS (9.4-12.5)
[2023-12-28 11:59] LABS: PTT Partial Thromboplastin Tim 38 SECONDS (25.1-36.5)
[2023-12-28 12:05] LABS: Alanine Aminotransferase 165 IU/L (<50); Albumin 4.7 g/dL (3.5-5.0); Albumin Globulin Ratio 1.4 (1.0-2.8); Alkaline Phosphatase 63 U/L (38-126); Aspartate Aminotransferase 101 IU/L (17-59); BUN Creatinine Ratio 20.9 (6-22); Blood Urea Nitrogen 14 mg/dL (9-20); Calcium 9.6 mg/dL (8.4-10.2); Carbon Dioxide 26 mmol/L (22-32); Chloride 100 mmol/L (98-107); Creatine Kinase 309 U/L (55-170); Estimated Glomerular Filt Rate > 60 mL/min (>60); Globulin 3.4 g/dL (1.7-4.1); Glucose 115 mg/dL (70-100); HEMOLYSIS < 15 (0-50); Lipase 126 U/L (23-300); Magnesium 1.7 mg/dL (1.6-2.3); Potassium 4.1 mmol/L (3.4-5.1); Sodium 134 mmol/L (137-145); Total Protein 8.1 g/dL (6.3-8.2)
[2023-12-28 12:17] LABS: Troponin I < 0.012 ng/mL (0.01-0.034)
--- NOTE | 2023-12-28 13:28 | ED.CHESTPAIN ---
HPI - Chest Pain General Chief Complaint: Chest Pain Stated Complaint: BP SPIKING Time Seen by Provider: 12/28/23 11:38 Source: patient Mode of arrival: Ambulatory Limitations: no limitations History of Present Illness HPI narrative: 53-year-old gentleman with a history of significant hypertension, ICU admit for medication management of such at the end of November, amlodipine currently at 5 mg and lisinopril has recently been increased to 40 mg. Patient presents complaining of 3/10 chest pain that has been ongoing for the last 24 hours. Related Data Home Medications Medication Instructions Recorded Confirmed sildenafil 50 mg tablet 50 mg PO PRN PRN Erectile 11/29/23 11/29/23 Dysfunction Previous Rx's Medication Instructions Recorded amlodipine 5 mg tablet (Norvasc) 5 mg PO DAILY #30 tabs 11/30/23 lisinopril 20 mg tablet 20 mg PO DAILY #30 tabs 11/30/23 rosuvastatin 10 mg tablet (Crestor) 10 mg PO DAILY #30 tabs 11/30/23 amlodipine 5 mg tablet 5 mg PO BID #60 tabs 12/28/23 Allergies Allergy/AdvReac Type Severity Reaction Status Date / Time No Known Drug Allergies Allergy Verified 06/06/19 07:36 Patient History Medical History Hypertension Lower back pain Social History household members: spouse Smoking Status: Current every day smoker Smoking Status: Current every day smoker tobacco type: vaping alcohol intake frequency: 0-2 drinks per day Alcohol type: hard liquor Substance Use Type: marijuana Exam Initial Vital Signs Initial Vital Signs: Vital Signs Temperature 98.7 F 12/28/23 11:11 Pulse Rate 85 12/28/23 11:11 Respiratory Rate 18 12/28/23 11:11 Blood Pressure 137/83 12/28/23 11:11 Pulse Oximetry 98 12/28/23 11:11 Oxygen Delivery Method Room Air 12/28/23 11:11 Course Orders Ordered: ED Orders 12/28/23 11:20 XR chest 1V Stat EKG-12 Lead Stat 12/28/23 11:35 Complete Blood Count AUTO DIFF Stat Comprehensive Metabolic Panel Stat Lipase Stat Magnesium Stat PTT Partial Thromboplastin Gerardo Stat Prothrombin Time INR Stat Troponin & CK Cardiac Panel Stat Discontinued Medications Aspirin (Aspirin 81 Mg Chew Tab) 324 mg PO NOW ONE Stop: 12/28/23 11:20 Last Admin: 12/28/23 11:54 Dose: 324 mg Documented By: MOSES Vital Signs Vital signs: Vital Signs - 8 hr 12/28/23 11:11 Temperature 98.7 F Pulse Rate 85 Respiratory Rate 18 Blood Pressure 137/83 Pulse Oximetry 98 Oxygen Delivery Method Room Air MDM - Chest Pain Lab Data 12/28/23 11:35 12/28/23 11:35 Labs: Lab Results 12/28/23 Range/Units 11:35 WBC 6.5 (4.5-11.0) X10^3/uL RBC 4.43 L (4.5-5.9) X10^6/uL Hgb 14.4 (13.5-17.5) g/dL Hct 41.5 (41-53) % MCV 93.8 (80-100) fL MCH 32.6 (26-34) PG MCHC 34.7 (30-36) % RDW 12.9 (11.6-14.8) % Plt Count 233 (150-400) X10^3/uL Neut % (Auto) 61.1 (50-75) % Lymph % (Auto) 26.8 (25-40) % [place] % (Auto) 9.2 (3-14) % Eos % (Auto) 1.5 L (2-4) % Baso % (Auto) 1.4 (0-2) % Neut # (Auto) 4000 (6890-7975) /uL Lymph # (Auto) 1700 (5210-8726) /uL [place] # (Auto) 600 (0-900) /uL Eos # (Auto) 100 (0-450) /uL Baso # (Auto) 100 (0-100) /uL PT 12.6 H (9.4-12.5) SECONDS INR 1.1 (0.9-1.3) APTT 38 H (25.1-36.5) SECONDS Sodium 134 L (137-145) mmol/L Potassium 4.1 (3.4-5.1) mmol/L Chloride 100 (98-107) mmol/L Carbon Dioxide 26 (22-32) mmol/L BUN 14 (9-20) mg/dL Creatinine 0.67 (0.66-1.25) mg/dL Estimated GFR > 60 (>60) mL/min BUN/Creatinine Ratio 20.9 (6-22) Glucose 115 H (70-100) mg/dL Calcium 9.6 (8.4-10.2) mg/dL Magnesium 1.7 (1.6-2.3) mg/dL Total Bilirubin 1.0 (0.2-1.3) mg/dL AST 101 H (17-59) IU/L ALT 165 H (<50) IU/L Alkaline Phosphatase 63 (38-126) U/L Total Creatine Kinase 309 H (55-170) U/L Troponin I < 0.012 (0.01-0.034) ng/mL Total Protein 8.1 (6.3-8.2) g/dL Albumin 4.7 (3.5-5.0) g/dL Globulin 3.4 (1.7-4.1) g/dL Albumin/Globulin Ratio 1.4 (1.0-2.8) Lipase 126 (23-300) U/L MDM Narrative Medical decision making narrative: CC: Chest pain Complicating co-morbidities: Hypertension, patient has been significantly decreasing is alcohol use, hyperlipidemia, he has changed from smoking tobacco and to to vaping Data collected from: patient Medical records reviewed: Notes from hospital discharge November 29 are reviewed. Patient had been admitted with nicardipine drip for blood pressure control no evidence of acute coronary syndrome at that time Patient had a stress echo on May 01 at [facility] that showed low risk exercise stress echogram. No appreciable wall abnormalities post exercise. Appropriate LVEF augmentation post exercise and no significant EKG changes Differential considered: Hypertensive emergency, alcohol gastritis, musculoskeletal pain Exam documented above, pertinent findings include: Exam is completely benign Lab Test results independently reviewed as above. Pertinent findings: CBC is unremarkable Chemistries are reassuring, AST and ALT are trending down from end of November. Troponin is undetectable Independently reviewed EKG: Sinus rhythm at a rate of 85. Left ventricular hypertrophy. No acute ischemic changes Imaging studies independently reviewed: X-rays unremarkable Discussion: 53-year-old gentleman comes in concerned that he is having symptoms secondary to blood pressure. After being admitted with hypertensive crisis at the end of November he is sensitive to all the sensations. He has cut down drinking significantly and I suspect that the sensations he is noticing or actually mild alcohol withdrawal. Workup today is actually very reassuring. With 24 hours a symptoms and a normal EKG and troponin additional workup at this time isn't required. He had a normal stress echo done in April. We had a very long discussion regarding alcohol, its effect on your body overall, effects on blood pressure as you are decreasing alcohol. He was wondering why he was having episodes of being flushed which could very well be alcohol withdrawal as well. He is continued to be invested in getting rid of the alcohol. Says he is down to 1 drink a day I encouraged him to get to 0 drinks per day. We also talked about nicotine use. He has switched to vaping and once he has gotten to no alcohol use he needs to begin tapering down the nicotine dosing in his vaping. He is highly motivated for all of this. Regarding his blood pressure, I am going to suggest that he increase his amlodipine to 10 mg. I suspect that some of the blood pressure lability is because of his alcohol reduction which hopefully is going to continue over the next couple of weeks to months. I have suggested that he split his lisinopril and amlodipine doses to morning and evening. We did go over the pharmacology of the pills themselves however with the vascular lability secondary to his alcohol withdrawal dividing the doses may be helpful and he actually would very much like to do that. He is continuing his Crestor. Has a follow up with his primary care physician he is safe for discharge at this time Discharge Plan Departure Patient Disposition: Home Clinical Impression: Alcohol use disorder, Nicotine use disorder, Chronic epigastric pain Hypertension Qualifiers: Hypertension type: primary hypertension Qualified Code(s): I10 - Essential (primary) hypertension Instructions: DI for High Blood Pressure, DI for Alcoholic Gastritis Activity Restrictions/Additional Instructions: Thank you for coming in today. Your blood work, EKG and chest x-ray were reassuring. You are not having an acute heart attack. In looking at the stress echocardiogram that you had done in April of last year, there was no evidence of significant blockages throughout your coronary arteries. With the amount of alcohol that you have decreased in these last 3 weeks, your liver enzymes are slightly improving. This is excellent. I suspect that as your body adjusts to lower and lower doses of alcohol you are having mild withdrawal symptoms. This can increase your heart rate, blood pressure, cause flushing and sweats as well as irritability. Please do continue to back off on your drinking with a goal of no alcohol use at all. You described somewhat heavier alcohol use 48 hours ago and today you are having increased blood pressure symptoms, I suspect that this is actually more alcohol withdrawal symptoms. With the pain that you are experiencing I have given you some information on alcohol gastritis. I suspect that this is much your stomach that is causing your discomfort as anything else. Again, with your plan to get to no alcohol use this is also going to improve. You can try some Tums or Maalox and see if that influences the overall pain With your blood pressure I am going to suggest that we increase your total amlodipine dose to 10 mg a day and your total lisinopril dose to 40 mg a day. We talked about splitting those doses initially until your body is used to the absence of alcohol and you have gotten to appropriate chronic blood levels of the blood pressure medications. I would recommend 5 mg of amlodipine and 10 mg of lisinopril in the morning and approximately 12 hours later repeating. A new prescription for amlodipine has been transmitted to [facility] in [place] The reason to return to the emergency department with concerns for blood pressure is numbers that are consistently above 220/120 AND associated with end-organ symptoms such as chest pain, shortness on breath, headache, stroke symptoms or fuzzy thinking If you find that you are getting worse or develop any new symptoms, please feel free to return to the emergency department for further evaluation. Prescriptions: New amlodipine 5 mg tablet 5 mg PO BID Qty: 60 0RF No Action sildenafil 50 mg tablet 50 mg PO PRN PRN (Reason: Erectile Dysfunction) lisinopril 20 mg Tablet 20 mg PO DAILY Qty: 30 2RF amlodipine [Norvasc] 5 mg Tablet 5 mg PO DAILY Qty: 30 2RF rosuvastatin [Crestor] 10 mg tablet 10 mg PO DAILY Qty: 30 2RF Referrals: Arely Sterling ARNP [Primary Care Provider] - Stand Alone Forms: Patient Portal/API
== END 2023-12-28 14:24 | disposition home or self-care (01) ==
PROVIDERS: Emergency Provider Emergency Medicine; PCP Nurse Practitioner Family
DX: I10 Essential (primary) hypertension (principal); F10.90 Alcohol use, unspecified, uncomplicated; Z72.0 Tobacco use; G89.29 Other chronic pain; R10.13 Epigastric pain
CPT/HCPCS: 36415; 71045; 80053; 82550; 83690; 83735; 84484; 85025; 85610; 85730; 93005; 99284

== ENCOUNTER → 2024-03-30 15:21 | Outpatient (CLI) | payer OTHER, SELFPAY ==
[2023-11-29 18:36] VITALS: BMI 27.7
--- NOTE | 2024-03-30 15:22 | DI.US.S_ITS ---
PROCEDURE: US SCROTUM INDICATIONS: RIGHT TESTICULAR PAIN TECHNIQUE: Real-time scanning was performed of the scrotum and testicles, with image documentation. Color and pulse Doppler interrogation was performed of both testicles. COMPARISON: None. FINDINGS: Right: Testicle is normal in size at 4.8 x 2.6 x 3.0 cm, and homogenous in echotexture. Epididymis is normal in overall size and morphology. No hydrocele or varicoceles. Overlying scrotal skin is normal in thickness. Left: Testicle is normal in size at 4.7 x 2.5 x 3.2 cm, and homogeneous in echotexture. Epididymis is normal in overall size and morphology. Hydrocele without varicocele. varicoceles. Overlying scrotal skin is normal in thickness. Doppler: Color and pulse Doppler demonstrate normal and symmetric arterial flow in both testicles. IMPRESSION: No torsion at time of exam. Small left hydrocele. Dictated by: Muna Rosario M.D. on 03/30/2024 at 22:04 Approved by: Muna Rosario M.D. on 03/30/2024 at 22:05
== END ==
LOC: US 15:22
PROVIDERS: PCP Nurse Practitioner Family; Referring Provider Nurse Practitioner Family; Visit Provider Nurse Practitioner Family
DX: N50.811 Right testicular pain (principal); N43.3 Hydrocele, unspecified
CPT/HCPCS: 76870

== ENCOUNTER 2025-05-20 09:49 | Emergency (ER) | payer OTHER, SELFPAY ==
[2023-11-29 18:36] VITALS: BMI 27.7
[2025-05-20] VITALS (12 sets, daily range): BP systolic 124–137; BP diastolic 59–74; PULSE 107–115; RESP 20–28; TEMP 37.6–39.3; O2SAT 89–100; BMI 27.4
--- NOTE | 2025-05-20 10:22 | ED_ITS ---
HPI - GI Bleed General Chief complaint: GI Bleed Stated complaint: Severe abd pain; nausea and vomitting blood Time Seen by Provider: 05/20/25 09:54 Source: patient Mode of arrival: Ambulatory History of Present Illness HPI Narrative: 55-year-old gentleman hx high blood pressure, alcohol use abuse disorder drinks 4-5 12 oz whiskey each night presents with abdominal pain and distention along with 1 bout of vomiting blood, earlier today. He had a soft bowel movement earlier noticed it was a little bit darker than usual. He last had a colonoscopy a few years ago that showed polyps. Other than what is stated 14 point review of system is negative. Related Data Home Medications ?Medication ?Instructions ?Recorded ?Confirmed sildenafil 50 mg tablet 50 mg PO PRN PRN Erectile 11/29/23 Dysfunction Previous Rx's ?Medication ?Instructions ?Recorded amlodipine 5 mg tablet (Norvasc) 5 mg PO DAILY #30 tab s 11/30/23 lisinopril 20 mg tablet 20 mg PO DAILY #30 tabs 11/08 10/30 rosuvastatin 10 mg tablet (Crestor) 10 mg PO DAILY #30 tabs 11/30/23 amlodipine 5 mg tablet 5 mg PO BID #60 tabs 4 Allergies Allergy/AdvReac Type Severity Reaction Status Date / Time No Known Drug Allergies Allergy Verified 06/06/19 07:36 Review of Systems Review of Systems ROS Unobtainable: All systems reviewed & are unremarkable except as noted in HPI and below Patient History Medical History Hypertension Lower back pain Social History household members: spouse tobacco type: vaping alcohol intake frequency: 0-2 drinks per day Alcohol type: hard liquor Exam Narrative Exam Narrative: GENERAL: [55] year old patient appears stated age. Well-developed patient, in mild distress. HEAD: Atraumatic. Normocephalic. EYES: Pupils equal round and reactive. Extraocular motions intact. No scleral icterus. No injection or drainage. ENT: Nose without bleeding, purulent drainage. Throat without erythema, tonsillar hypertrophy or exudate. Airway patent. NECK: Trachea midline. Non tender CARDIOVASCULAR: Regular rate and rhythm without murmurs, gallops, or rubs. RESPIRATORY: Clear to auscultation. Breath sounds equal bilaterally. No wheezes, rales, or rhonchi. GASTROINTESTINAL: Abdomen soft, diffuse tender, nondistended. EXTREMITIES: No edema or joint tenderness. BACK: Nontender without deformity or crepitance. No flank tenderness. NEURO: AOx3. SKIN: No rash or erythema of visible areas Initial Vital Signs Initial Vital Signs: Vital Signs Temperature 99.7 F H 05/20/25 10:12 Pulse Rate 107 H 05/20/25 10:12 Respiratory Rate 28 H 05/20/25 10:12 Blood Pressure 130/59 L 05/20/25 10:12 Pulse Oximetry 100 05/20/25 10:12 Oxygen Delivery Method Room Air 05/20/25 10:12 Course Orders Ordered: ED Orders 05/20/25 10:05 Complete Blood Count AUTO DIFF Stat Comprehensive Metabolic Panel Stat Lipase Stat PTT Partial Thromboplastin Gerardo Stat Prothrombin Time INR Stat Type and Screen Stat 05/20/25 10:22 CT angio Abd/Pel GI Bleed Stat 05/20/25 12:05 Ictotest Urine Stat Urine Microscopic Stat Ondansetron HCl (Ondansetron 4 Mg/2 Ml Inj) 4 mg IV NOW PRN PRN Reason: Nausea And Vomiting Ondansetron HCl (Ondansetron 4 Mg Odt) 4 mg PO NOW PRN PRN Reason: Nausea And Vomiting Discontinued Medications Lactated Ringer's (Lactated Ringers) 500 mls @ 1,000 mls/hr IV BOLUS ONE Stop: 05/20/25 10:44 Last Admin: 05/20/25 10:26 Dose: Not Given Documented By: LUDMILA Ondansetron HCl (Ondansetron 4 Mg/2 Ml Inj) 4 mg IV NOW ONE Stop: 05/20/25 10:16 Last Admin: 05/20/25 10:25 Dose: 4 mg Documented By: LUDMILA Pantoprazole Sodium (Pantoprazole 40 Mg Vial) 40 mg IV NOW ONE Stop: 05/20/25 10:16 Last Admin: 05/20/25 10:25 Dose: 40 mg Documented By: LUDMILA Vital Signs Vital signs: Vital Signs - 8 hr 05/20/25 10:12 05/20/25 10:44 05/20/25 11:00 Temperature 99.7 F H Pulse Rate 107 H 112 H 115 H Respiratory Rate 28 H 27 H 25 H Blood Pressure 130/59 L Pulse Oximetry 100 95 Oxygen Delivery Method Room Air Oxygen Flow Rate 05/20/25 11:30 05/20/25 12:09 05/20/25 12:09 Temperature Pulse Rate 112 H 111 H Respiratory Rate 27 H Blood Pressure 133/74 Pulse Oximetry 91 98 Oxygen Delivery Method Oxygen Flow Rate 05/20/25 12:30 05/20/25 12:30 Temperature Pulse Rate 113 H Respiratory Rate 28 H Blood Pressure 137/67 Pulse Oximetry 89 L Oxygen Delivery Method Nasal Cannula Oxygen Flow Rate 2 MDM - GI Bleed Lab Data 05/20/25 10:05 05/20/25 10:05 Labs: Lab Results 05/20/25 05/20/25 Range/Units 10:05 12:05 WBC 13.4 H (4.5-11.0) X10^3/uL RBC 4.48 L (4.5-5.9) X10^6/uL Hgb 14.7 (13.5-17.5) g/dL Hct 42.4 (41-53) % MCV 94.5 (80-100) fL MCH 32.9 (26-34) PG MCHC 34.8 (30-36) % RDW 14.2 (11.6-14.8) % Plt Count 220 (150-400) X10^3/uL Neut % (Auto) 90.9 H (50-75) % Lymph % (Auto) 5.3 L (25-40) % [place] % (Auto) 3.3 (3-14) % Eos % (Auto) 0.1 L (2-4) % Baso % (Auto) 0.4 (0-2) % Neut # (Auto) 80321 H (7225-1023) /uL Lymph # (Auto) 700 L (8299-3996) /uL [place] # (Auto) 400 (0-900) /uL Eos # (Auto) 0 (0-450) /uL Baso # (Auto) 100 (0-100) /uL PT 13.8 H (9.4-12.5) SECONDS INR 1.2 (0.9-1.3) APTT 35 (25.1-36.5) SECONDS Sodium 136 L (137-145) mmol/L Potassium 3.7 (3.4-5.1) mmol/L Chloride 102 (98-107) mmol/L Carbon Dioxide 17 L (22-32) mmol/L BUN 9 (9-20) mg/dL Creatinine 1.28 H (0.66-1.25) mg/dL Estimated GFR > 60 (>60) mL/min BUN/Creatinine Ratio 7.0 (6-22) Glucose 217 H (70-99) mg/dL Calcium 9.5 (8.4-10.2) mg/dL Total Bilirubin 2.1 H (0.2-1.3) mg/dL AST 167 H (17-59) IU/L ALT 82 H (<50) IU/L Alkaline Phosphatase 179 H (38-126) U/L Total Protein 9.8 H (6.3-8.2) g/dL Albumin 4.4 (3.5-5.0) g/dL Globulin 5.4 H (1.7-4.1) g/dL Albumin/Globulin Ratio 0.8 L (1.0-2.8) Lipase 376 H (23-300) U/L Ur Bilirubin Confirm Negative (Negative) Urine RBC 1-5/hpf (0-5/HPF) Urine WBC 0-1/hpf (0-5/HPF) Ur Squamous Epith Cells None seen (0-5/HPF) Urine Bacteria None seen (None) Ur Culture Indicated? Cult not indicated Vol Urine Centrifuged 10ml (spun) Blood Type AB Positive Antibody Screen Negative Urine Dip Bedside Urine Glucose Negative Bedside Urine Bilirubin + 1 Bedside Urine Ketone - Negative Urine Specific [place] 1.000 Bedside Urine Occult Blood +++ Bedside Urine pH 6.5 Bedside Urine Protein ++ 100 Bedside Urine Urobilinogen 2+ 4mg Bedside Urine Nitrite - Negative Bedside Urine Leukocytes - Negative Esterase Imaging Data CT scan - abdomen/pelvis: Radiologist's Impression: [address] [address] [address] Scan Report Signed Patient: Shikha Siu MR#: [id number] : 1970 Acct:[id number] Age/Sex: 55 / M Date of Service: 05/20/25 Loc: ED Accession Number: [id number] Procedure: CT angio Abd/Pel GI Bleed Ordering Provider: Maurice Saldivar D.O. PROCEDURE: CT ANGIO ABD/PEL GI BLEED INDICATIONS: gi bleed TECHNIQUE: After the administration of intravenous contrast, 2.5 mm sections acquired from the diaphragm to the iliac crests. 10 mm maximum intensity projection (MIP) coronal and sagittal reformats were then performed. For radiation dose reduction, the following was used: automated exposure control. COMPARISON: None. FINDINGS: Image quality: Diagnostic. Abdominal aorta: No aortic aneurysm or evidence of acute aortic syndrome. Mesenteric arteries: Patent without hemodynamically significant stenosis. Renal arteries: Patent without hemodynamically significant stenosis. Lower chest: Unremarkable. ABDOMEN: Liver: Cirrhosis. There is a nonocclusive thrombus within the portal vein, extending from the origin to the brandee hepatis. No solid mass but contrast timing is suboptimal for detection. Gallbladder: Cholelithiasis. Diffuse gallbladder wall thickening. Biliary ducts: No biliary dilation. Pancreas: No ductal dilation. Spleen: Enlarged. Adrenal Glands: No adrenal nodules. Kidneys and Ureters: No hydronephrosis. No solid mass. No complex renal cystic lesion which requires follow up. Stomach and Bowel: Wall thickening of the ascending colon. Normal appendix. Peritoneum: Fat stranding in the mesorectal space and central mesentery. Ventral Wall: No hernia. Abdominal Nodes: Prominent retroperitoneal lymph nodes, which maintain a normal reniform shape and fatty hilum. Vessels: Aorta, as above. Normal IVC. PELVIS: Pelvic Organs: Unremarkable. Bladder: Unremarkable. Pelvic Nodes: No enlarged lymph nodes. Miscellaneous: Small left indirect inguinal hernia containing fat. Bones: No aggressive osseous abnormality. IMPRESSION: No active GI hemorrhage. Cirrhosis. Nonocclusive thrombus in the portal vein extending from the origin to the brandee hepatis. Contrast timing is suboptimal for detection of HCC. Wall thickening of the ascending colon, probably portal colopathy. Infectious/inflammatory colitis is also a consideration. Evidence of vascular congestion likely related to underlying portal thrombus, with mesorectal fat stranding and central mesenteric fat stranding. Cholelithiasis with diffuse gallbladder wall thickening but no distension. Wall thickening is likely related to underlying cirrhosis. Enlarged retroperitoneal lymph nodes, likely reactive given normal reniform shape and fatty hilum. Correlate with urinalysis to exclude urinary tract infection. MDM Narrative Medical decision making narrative: All lab work, vital signs, nurse triage note, medication list, previous ER visits, and all imaging studies reviewed. WBC 13.4 hemoglobin 14.7 platelet 220 INR 1.2 sodium 136 potassium 3.7 102 chloride CO2 17 BUN 9 creatinine 1.28 glucose 217 T bili 2.1 AST 167 [address] abdomen and pelvis no active GI hemorrhage nonocclusive thrombus in the portal vein extending from the origin to the portal hepatis. Contrast timing suboptimal for detection of HCC. Wall thickening of the ascending colon probably portal colopathy. Infectious inflammatory colitis also a consideration. Evidence of vascular congestion likely related to underlying portal thrombus with [place] rectal fat stranding and central mesenteric fat stranding. Cholelithiasis with diffuse gallbladder wall. Thickening but no distention wall thickening is likely related to underlying cirrhosis. Enlarged retroperitoneal lymph nodes likely reactive given normal. renal form shape in fatty hilum for late with urinalysis to exclude UTI. Case d/w Dr.Zhang RAMIRO DUNCAN who agrees patient needs to be transferred and to be admitted to the hospitalist service for which I spoke to Dr. Cardenas who has graciously accepted the patient for inpatient admission transfer. Discharge Plan Departure Patient Disposition: [facility] Clinical Impression: Portal vein thrombosis, Alcohol use disorder Prescriptions: No Action sildenafil 50 mg tablet 50 mg PO PRN PRN (Reason: Erectile Dysfunction) lisinopril 20 mg Tablet 20 mg PO DAILY Qty: 30 2RF amlodipine [Norvasc] 5 mg Tablet 5 mg PO DAILY Qty: 30 2RF rosuvastatin [Crestor] 10 mg tablet 10 mg PO DAILY Qty: 30 2RF amlodipine 5 mg tablet 5 mg PO BID Qty: 60 0RF Referrals: Arely Sterling ARNP [Primary Care Provider, Nursing]
[2025-05-20] MEDS: PANTOPRAZOLE 40 MG VIAL IV (10:25)
[2025-05-20] MEDS: ONDANSETRON 4 MG/2 ML INJ IV (10:25)
[2025-05-20 10:27] LABS: Add Manual Diff / Slide Review NO; Hematocrit 42.4 % (41-53); Hemoglobin 14.7 g/dL (13.5-17.5); Lymphocytes Absolute Auto 700 /uL (1100-4500); Mean Corpuscular HGB Conc 34.8 % (30-36); Mean Corpuscular Hemoglobin 32.9 PG (26-34); Mean Corpuscular Volume 94.5 fL (80-100); Platelet Count 220 X10^3/uL (150-400)
[2025-05-20 10:30] LABS: INR 1.2 (0.9-1.3); Prothrombin Time 13.8 SECONDS (9.4-12.5)
[2025-05-20 10:32] LABS: Alanine Aminotransferase 82 IU/L (<50); Albumin 4.4 g/dL (3.5-5.0); Albumin Globulin Ratio 0.8 (1.0-2.8); Alkaline Phosphatase 179 U/L (38-126); Blood Urea Nitrogen 9 mg/dL (9-20); Calcium 9.5 mg/dL (8.4-10.2); Carbon Dioxide 17 mmol/L (22-32); Chloride 102 mmol/L (98-107); Estimated Glomerular Filt Rate > 60 mL/min (>60); Globulin 5.4 g/dL (1.7-4.1); Glucose 217 mg/dL (70-99); HEMOLYSIS 20 (0-50); PTT Partial Thromboplastin Tim 35 SECONDS (25.1-36.5); Potassium 3.7 mmol/L (3.4-5.1); Sodium 136 mmol/L (137-145); Total Protein 9.8 g/dL (6.3-8.2)
[2025-05-20 11:17] LABS: Lipase 376 U/L (23-300)
[2025-05-20 12:24] LABS: Ictotest Urine Negative (Negative)
[2025-05-20 12:26] LABS: Culture Indicated Urine Cult Not Indicated
[2025-05-20] MEDS: ACETAMINOPHEN 325 MG TABLET 650 MG PO (15:10)
--- NOTE | 2025-05-20 15:15 | PC.NURSE ---
Report valled to Nurse report: [phone] ext [phone]. report given to Sheryl MURPHY
== END 2025-05-20 15:15 | disposition short-term general hospital (02) ==
PROVIDERS: Emergency Provider Family Medicine; PCP Nurse Practitioner Family
DX: I81 Portal vein thrombosis (principal); F10.90 Alcohol use, unspecified, uncomplicated
CPT/HCPCS: 36415; 74174; 80053; 81003; 81015; 83690; 85025; 85610; 85730; 86850; 86900; 86901; 96374; 96375; 99284; J1171; J2405; J2470; Q9967